=== PATIENT | female | born 1935 | race Caucasian/White ===

== ENCOUNTER 2017-05-30 20:35 | Emergency (ER) | payer MEDICARE, OTHER ==
--- NOTE | 2017-05-30 20:41 | EDM.PDOC ---
ED HPI GENERAL MEDICAL PROBLEM - General Chief Complaint: Neuro Symptoms/Deficits Stated Complaint: BY AMBULANCE MIXED UP IN HEAD COULDNT MOVE Time Seen by Provider: 05/30/17 20:32 Source of Information: Reports: Patient, EMS, Family History Limitations: Reports: No Limitations - History of Present Illness INITIAL COMMENTS - FREE TEXT/NARRATIVE: EMS state was called to pt can't move, spouse told them pt wasn't moving or talking. EMS found pt sitting in bathroom told them she was dizzy ~ 5pm then just before they arrive she had problem moving and talking but she is fine now. pt ambulated with EMS to [facility] [place] [facility]. arrived to ER transferred to bed without problems moving all limbs. pt states she had problem remembering and trying to say things but seems fine right now and can refrigerator mover her arms & legs. does have some dizziness especially when moves too quickly. Upper Back Pain Score (Numeric/FACES): 5 - Related Data Allergies Allergy/AdvReac Type Severity Reaction Status Date / Time duloxetine HCl Allergy Confusion Verified 05/30/17 20:36 [From Cymbalta] hydrocodone bitartrate Allergy Rash Verified 05/30/17 20:36 [From [place]] Home Meds: Home Meds Gabapentin 2 cap PO TID 05/23/14 [History] Ascorbic Acid [C-1000] 1 tab PO DAILY 12/28/14 [History] Cholecalciferol (Vitamin D3) [Vitamin D3] 1 cap PO DAILY 12/28/14 [History] Cyanocobalamin (Vitamin B12) [Vitamin B12] 1 tab PO DAILY 12/28/14 [History] Acetaminophen [Acetaminophen Extra Strength] 1 - 2 tab PO Q8H PRN 02/28/15 [ History] Multivitamin [Daily Multiple Vitamin] 1 tab PO DAILY 02/28/15 [History] Naproxen Sodium [Aleve] 2 cap PO DAILY 02/28/15 [History] Cefuroxime Axetil [Cefuroxime] 1 tab PO BID 05/30/17 [History] traMADol HCl [Tramadol HCl] 1 tab PO DAILY 05/30/17 [History] Past Medical History HEENT History: Reports: Cataract, Hard of Hearing, Impaired Vision Other HEENT History: WEARS CORRECTIVE LENSES; CATARACT-RIGHT Cardiovascular History: Reports: High Cholesterol Other Cardiovascular History: HYPERLIPIDEMIA Respiratory History: Reports: None Gastrointestinal History: Reports: None Genitourinary History: Reports: None [employer] History: Reports: Musculoskeletal History: Reports: Arthritis, Fibromyalgia, Osteoporosis Other Musculoskeletal History: POLYMYALGIA RHEUMATICA IN REMISSION; DEGENERATIVE DISC DISEASE Neurological History: Reports: Neuropathy, Peripheral Psychiatric History: Reports: Anxiety Endocrine/Metabolic History: Reports: None Hematologic History: Reports: Anemia, Other (See Below) Other Hematologic History: MONOCLONAL GAMMOPATHY Immunologic History: Reports: None Oncologic (Cancer) History: Reports: None Dermatologic History: Reports: None, Other (See Below) Other Dermatologic History: HX OF STAGE 1 HEEL ULCER - Past Surgical History HEENT Surgical History: Reports: Cataract Surgery, Tonsillectomy Musculoskeletal Surgical History: Reports: Knee Replacement Dermatological Surgical History: Reports: Other (See Below) Social & Family History - Tobacco Use Smoking Status *Q: Former Smoker Years of Tobacco use: 20 Used Tobacco, but Quit: Yes Month/Year Tobacco Last Used: 06/24/2011 Second Hand Smoke Exposure: No - Alcohol Use Days Per Week of Alcohol Use: 0 - Recreational Drug Use Recreational Drug Use: No Drug Use in Last 12 Months: No ED ROS GENERAL - Review of Systems Review Of Systems: ROS reveals no pertinent complaints other than HPI. ED EXAM, NEURO - Physical Exam Exam: See Below Exam Limited By: No Limitations General Appearance: Alert, WD/WN, No Apparent Distress Eye Exam: Bilateral Eye: PERRL (pupils ER @ 4mm) Ears: Hearing Grossly Normal Throat/Mouth: Normal Voice, No Airway Compromise Head Exam: Atraumatic Neck: Non-Tender, Full Range of Motion Respiratory/Chest: No Respiratory Distress, No Accessory Muscle Use, Rales, Rhonchi, Other (basilar). No: Decreased Breath Sounds Cardiovascular: Regular Rate, Rhythm GI/Abdominal: Soft, Non-Tender Neurological: Alert, Normal Mood/Affect, No Motor/Sensory Deficits, Oriented x 3 , Other (face symmet) Psychiatric: Normal Affect, Normal Mood Skin Exam: Warm, Dry, Normal Color Course - Vital Signs Last Recorded V/S: Last Vital Signs Temp 38.9 C H 05/30/17 21:27 Pulse 97 05/30/17 21:27 Resp 20 05/30/17 21:27 BP 141/83 H 05/30/17 21:27 Pulse Ox 93 L 05/30/17 21:27 - Orders/Labs/Meds Orders: Active Orders 24 hr Category Date Time Status EKG 12 Lead [EKG Documentation Completion] [] STAT Care 05/30/17 20:43 Active EKG 12 Lead [EKG Documentation Completion] [] STAT Care 05/30/17 21:54 Active CULTURE BLOOD [] Stat Lab 05/30/17 21:40 Received CULTURE BLOOD [] Stat Lab 05/30/17 21:48 Results cefTRIAXone [Rocephin] Med 05/30/17 22:14 Once 1 gm IVPUSH ONETIME ONE Blood Culture x2 Reflex Set [OM.PC] Stat Oth 05/30/17 21:29 Ordered Labs: Laboratory Tests 05/30/17 05/30/17 05/30/17 Range/Units 20:40 20:40 20:40 WBC 5.1 (5.0-10.0) 10^3/uL RBC 4.17 L (4.2-5.4) 10^6/uL Hgb 13.2 (12.0-16.0) g/dL Hct 38.4 (37.0-47.0) % MCV 92.1 (80-100) fL MCH 31.7 (27.0-34.0) pg MCHC 34.4 (33.0-35.0) g/dL Plt Count 213 (150-450) 10^3/uL Neut % (Auto) 83.8 H (42.2-75.2) % Lymph % (Auto) 5.9 L (20.5-50.1) % [facility] % (Auto) 10.1 H (2-8) % Eos % (Auto) 0.0 L (1.0-3.0) % Baso % (Auto) 0.2 (0.0-1.0) % PT 13.5 H (9.0-12.0) SEC INR 1.3 H (0.9-1.2) APTT 25.4 (22.0-34.0) SEC Sodium 130 L (135-145) mmol/L Potassium 3.4 L (3.6-5.0) mmol/L Chloride 93 L (101-111) mmol/L Carbon Dioxide 25.0 (21.0-31.0) mmol/L Anion Gap 15.4 BUN 10 (7-18) mg/dL Creatinine 0.6 (0.6-1.3) mg/dL Est Cr Clr Drug Dosing 55.20 mL/min Estimated GFR (MDRD) > 60 BUN/Creatinine Ratio 16.66 Glucose 129 H (74-105) mg/dL Calcium 8.7 (8.4-10.2) mg/dl Total Bilirubin 0.5 (0.2-1.0) mg/dL AST 39 (10-42) IU/L ALT 20 (10-60) IU/L Alkaline Phosphatase 85 (42-121) IU/L Troponin I 0.06 H* (0.00-0.02) ng/ml Total Protein 7.7 (6.7-8.2) g/dl Albumin 3.8 (3.2-5.5) g/dl Globulin 3.9 Albumin/Globulin Ratio 0.97 - Re-Assessments/Exams Free Text/Narrative Re-Assessment/Exam: 05/30/17 22:[address] Carolina @ who kindly accepted pt. Departure - Departure Time of Disposition: 22:15 Disposition: DC/Tfer to Acute Hospital 02 Condition: Fair Clinical Impression: Non-STEMI (non-ST elevated myocardial infarction), Elevated troponin I level TIA (transient ischemic attack) Qualifiers: Transient cerebral ischemia type: unspecified Qualified Code(s): G45.9 - Transient cerebral ischemic attack, unspecified Pneumonia Qualifiers: Pneumonia type: due to unspecified organism Laterality: right Lung location: lower lobe of lung Qualified Code(s): J18.1 - Lobar pneumonia, unspecified organism - Discharge Information Forms: Interfacility Transfer EMTALA - My Orders Last 24 Hours: My Active Orders 05/30/17 20:43 EKG 12 Lead [EKG Documentation Completion] [RC] STAT 05/30/17 21:29 Blood Culture x2 Reflex Set [OM.PC] Stat 05/30/17 21:40 CULTURE BLOOD [BC] Stat 05/30/17 21:48 CULTURE BLOOD [BC] Stat 05/30/17 21:54 EKG 12 Lead [EKG Documentation Completion] [RC] STAT 05/30/17 22:14 cefTRIAXone [Rocephin] 1 gm IVPUSH ONETIME ONE - Assessment/Plan Last 24 Hours: My Active Orders 05/30/17 20:43 EKG 12 Lead [EKG Documentation Completion] [RC] STAT 05/30/17 21:29 Blood Culture x2 Reflex Set [OM.PC] Stat 05/30/17 21:40 CULTURE BLOOD [BC] Stat 05/30/17 21:48 CULTURE BLOOD [BC] Stat 05/30/17 21:54 EKG 12 Lead [EKG Documentation Completion] [RC] STAT 05/30/17 22:14 cefTRIAXone [Rocephin] 1 gm IVPUSH ONETIME ONE
[2017-05-30 21:06] LABS: CHLORIDE,CL 93 mmol/L (101-111); SODIUM,NA 130 mmol/L (135-145)
[2017-05-30 21:28] VITALS: BP 141/83
[2017-05-30] MEDS ORDERED: cefTRIAXone 1 GM Vial IVPUSH ONE (22:14)
--- NOTE | 2017-06-02 12:32 | EKG ---
05/30/2017 - ADAM JOHNSON - TIME: 20:21:08 hours. FINDINGS: A 12-lead EKG shows normal sinus rhythm with first-degree AV block with [place] interval of 220 and left bundle-branch block noted. No significant ST elevation or ST depression noted on this 12-lead EKG. [facility] /[id number]
--- NOTE | 2017-06-02 12:32 | EKG ---
05/30/2017 - ADAM JOHNSON - FINDINGS: A 12-lead EKG shows normal sinus rhythm with heart rate of 99, left bundle-branch block noted. No significant ST elevation or ST depression noted on this 12-lead EKG. [facility] /[id number]
== END 2017-05-30 22:56 ==
LOC: DL.ED 20:35
DX: G45.9 Transient cerebral ischemic attack, unspecified (principal); I21.4 Non-ST elevation (NSTEMI) myocardial infarction; J18.9 Pneumonia, unspecified organism; E78.00 Pure hypercholesterolemia, unspecified; Z88.5 Allergy status to narcotic agent; Z88.8 Allergy status to other drugs, medicaments and biological substances; Z79.899 Other long term (current) drug therapy; Z87.891 Personal history of nicotine dependence
CPT/HCPCS: 36415; 70450; 71045; 80053; 84484; 85025; 85610; 85730; 87040; 93005; 96374; 99285; J0696; 93010

== ENCOUNTER 2021-10-23 19:54 | Emergency (ER) | payer MEDICARE, OTHER ==
[2021-10-23 20:59] VITALS: BP 163/75; PULSE 76
[2021-10-23 21:33] LABS: ANION GAP 12.5 mEq/L (7-13)
== END 2021-10-23 21:31 ==
LOC: DL.ED 19:54
DX: S06.5X0A Traumatic subdural hemorrhage without loss of consciousness, initial encounter (principal); Z87.891 Personal history of nicotine dependence; Z88.5 Allergy status to narcotic agent; Z88.8 Allergy status to other drugs, medicaments and biological substances; Z20.822 Contact with and (suspected) exposure to COVID-19; W18.30XA Fall on same level, unspecified, initial encounter
CPT/HCPCS: 36415; 80053; 83605; 84484; 85025; 85610; 93005; 99285; U0002; 70450; 70551